=== PATIENT | female | born 1935 | race Caucasian/White ===

== ENCOUNTER 2021-09-19 13:15 | Outpatient (RCR) | payer MEDICARE, OTHER, SELFPAY ==
[2021-09-05 13:12] VITALS: BP 159/64; PULSE 69; RESP 18; TEMP 36.6; O2SAT 94; BMI 22.6
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
[2021-09-19 13:26] VITALS: BP 134/56; PULSE 90; TEMP 36.1; BMI 22.6
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
== END 2021-09-19 13:44 | disposition home or self-care (01) ==
LOC: WC 13:15
PROVIDERS: PCP Internal Medicine; Visit Provider Nurse Practitioner Family
DX: T81.89XA Other complications of procedures, not elsewhere classified, initial encounter (principal); I48.91 Unspecified atrial fibrillation; S81.802A Unspecified open wound, left lower leg, initial encounter; V86.99XA Unspecified occupant of other special all-terrain or other off-road motor vehicle injured in nontraffic accident, initial encounter; S92.909D Unspecified fracture of unspecified foot, subsequent encounter for fracture with routine healing; Z79.01 Long term (current) use of anticoagulants; Y83.8 Other surgical procedures as the cause of abnormal reaction of the patient, or of later complication, without mention of misadventure at the time of the procedure
CPT/HCPCS: 11042; 99203; 99213; G0463